=== PATIENT | male | born 1980 | race Caucasian/White ===

== ENCOUNTER → 2020-10-08 | Outpatient (REF) | payer OTHER | LOC: M SFHCRHEU 14:18 | PROVIDERS: ATTEND Internal Medicine | DX: M25.50 Pain in unspecified joint (principal) ==

== ENCOUNTER → 2020-10-08 | Outpatient (CLI) | payer OTHER ==
--- NOTE | 2020-10-08 16:08 | REP ---
INDICATION: POLYARTHRALGIA COMPARISON: None. TECHNIQUE: Internal rotation, external rotation, and Y view. FINDINGS: No acute fracture or dislocation. The acromioclavicular and glenohumeral joints are intact. No periarticular calcifications or degenerative changes are appreciated. Sub acromial space is normal. Surrounding soft tissues are unremarkable. IMPRESSION: Normal age-appropriate right shoulder radiographs. <Electronically signed by Alfredo Crowe > 10/08/20 [id number]
--- NOTE | 2020-10-08 16:13 | REP ---
INDICATION: POLYARTHRALGIA COMPARISON: None. TECHNIQUE: AP, lateral, and swimmers views. FINDINGS: Alignment and kyphosis is maintained. Vertebral bodies intact. No acute fracture / compression injury or subluxation. Age-related changes include minimal endplate sclerosis with very subtle marginal spurring/osteophyte formation. IMPRESSION: Generalized age-related changes. <Electronically signed by Alfredo Crowe > 10/08/20 [id number]
--- NOTE | 2020-10-09 06:52 | REP ---
INDICATION: POLYARTHRALGIA COMPARISON: None. TECHNIQUE: AP, lateral, bilateral oblique views right and left foot. FINDINGS: Osseous structures and joint spaces are symmetric and normal. Incidental bilateral small calcaneal heel spurs noted. Surrounding soft tissues are unremarkable bilaterally. No overt osteoarthritic or inflammatory arthritic changes are appreciated. No evidence for acute or healed injury. IMPRESSION: Symmetric essentially normal age-appropriate examination. Small calcaneal heel spurs. <Electronically signed by Alfredo Crowe > 10/09/20 [id number]
--- NOTE | 2020-10-09 06:54 | REP ---
INDICATION: POLYARTHRALGIA COMPARISON: None. TECHNIQUE: AP, lateral, bilateral oblique views right and left hand. FINDINGS: Osseous structures and joint spaces are essentially symmetric and age-appropriate without significant overt osteoarthritic or inflammatory arthritic changes appreciated. There is minimal sclerosis and joint space narrowing at the bilateral 1st metacarpophalangeal joints. No evidence for acute or healed injury. Surrounding soft tissues are normal. IMPRESSION: Minimal age-related changes at the bilateral MCP joints. Otherwise normal age-appropriate examination. <Electronically signed by Alfredo Crowe > 10/09/20 [id number]
== END ==
LOC: M RAD 15:10
PROVIDERS: ATTEND Internal Medicine
DX: M25.50 Pain in unspecified joint (principal); M54.6 Pain in thoracic spine; M77.31 Calcaneal spur, right foot; M77.32 Calcaneal spur, left foot